=== PATIENT | male | born 1955 | race African-American/Black ===

== ENCOUNTER 2016-09-03 10:09 | Inpatient (IN) | payer OTHER ==
[2016-09-03] VITALS (8 sets, daily range): BP systolic 125–144; BP diastolic 87–95; PULSE 64–96; RESP 18–20; Ht 170.2 cm; Wt 94.9 kg
[~2016-09-03] VITALS: Ht 170.2 cm; Wt 94.9 kg
[2016-09-03] MEDS ORDERED: ALBUTEROL/IPRATROPIUM (NEB) 3 ML AMP HHN PRN ×2 (12:00→14:00)
[2016-09-03] MEDS: NITROGLYCERIN 2% 1 GM OINT PKT TD SCH ×2 (12:00→21:00)
[2016-09-03] MEDS ORDERED: NA PHOSPHATE/BIPHOS 133 ML ENEMA PR PRN (14:00)
[2016-09-03] MEDS ORDERED: LORAZEPAM 2 MG INJ IV PRN (14:00)
[2016-09-03] MEDS ORDERED: MAGNESIUM HYDROXIDE 30ML CUP PO PRN (14:00)
[2016-09-03] MEDS ORDERED: DOCUSATE SODIUM 100 MG CAP PO PRN (14:00)
[2016-09-03] MEDS ORDERED: ACETAMINOPHEN 325 MG TAB PO PRN (14:00)
[2016-09-03] MEDS ORDERED: ONDANSETRON 4 MG INJ IV PRN (14:00)
[2016-09-03] MEDS ORDERED: HYDROCODONE/APAP (5/325) TAB PO PRN (14:00)
[2016-09-03] MEDS ORDERED: NITROGLYCERIN (SL) 0.4 MG TAB SL PRN (14:00)
[2016-09-03] MEDS ORDERED: NACL 0.9% 3 ML SYG IV SCH (14:00)
[2016-09-03] MEDS ORDERED: hydrALAzine 20 MG INJ IV PRN (14:00)
[2016-09-03] MEDS ORDERED: morphine 2 MG INJ IV PRN (14:00)
[2016-09-03 15:46] LABS: INR 1.02; PROTIME 13.4 Sec (12.2-14.2)
--- NOTE | 2016-09-03 16:58 | HP ---
DATE OF ADMISSION: 09/03/2016 CHIEF COMPLAINT: A 61-year-old male transferred from outside hospital due to abnormal left heart catheterization. HISTORY OF PRESENT ILLNESS: A 61-year-old male with past medical history of marijuana use and COPD who was transferred over from [facility] in [place] earlier today. Apparently, the patient had presented there about 5 days ago after experiencing chest pain symptoms that have been going on for 1 to 2 days prior to admission there. What concerned him was that he had more dizziness than normal and some increased left arm numbness and his became concerned and convinced him to go to [facility] on 08/30/2016 based on records. The patient states he has had these kind of symptoms off and on for the last couple years, happening about 2 to 3 times a month, but the dizziness and numbness have never been this severe so that is what concerned him and his family. No upper or lower GI bleeding, no fevers or chills, no nausea, vomiting, no diarrhea, no constipation. When he went to the outside hospital on 09/01/2016, he had a left heart catheterization that showed 85% to 90% proximal LAD blockage possibly ostial blockage. Apparently the patient has no left main artery anatomy. The single needle tufting machine operator there was concerned and wanted the patient transferred here as the hospital over there does not have cardiothoracic surgery services and so he wanted to see about having him transferred here in case the patient needs a bypass surgery and at a minimum needs a repeat heart catheterization. PAST MEDICAL HISTORY: As stated above. ALLERGIES: NO KNOWN DRUG ALLERGIES. CURRENT MEDICATIONS: 1. Aspirin 81 mg. 2. Norvasc 5 mg. 3. Tylenol 650 q.6h. p.r.n. 4. DuoNeb inhaled q.4h. p.r.n. 5. Nitroglycerin sublingual every 5 minutes p.r.n. FAMILY HISTORY: Mother's side of the family has depression, schizophrenia. No signs of any coronary artery disease. SOCIAL HISTORY: He smokes weed occasionally. Denies any IV drug abuse. No cigarette smoking, no alcohol use. PAST SURGICAL HISTORY: He has had Achilles heel surgery repair in the past and hernia surgery repair in the past. PHYSICAL EXAMINATION: VITAL SIGNS: T-max 97.8, pulse 64 to 93, respirations 20, blood pressure is 144 /87, saturating at 97% on room air. GENERAL: The patient is lying in bed, answering questions appropriately. No acute distress. HEENT: Pupils equal, round, react to light. Extraocular muscles intact. NECK: Supple, no thyromegaly. LUNGS: Clear to auscultation bilaterally. CARDIOVASCULAR: S1, S2 heard. No rubs or gallops. ABDOMEN: Soft, nontender, nondistended. Normal bowel sounds. No rebound or guarding. MUSCULOSKELETAL: No lower extremity edema bilaterally. NEUROLOGIC: No focal deficits. LABORATORIES: The free T4 is 1.53. Coags are normal. There is no new CBC or basic metabolic panel from today. The left heart catheterization results as mentioned above in the HPI. Of note, it looks like the patient had a cardiac stress test performed, Lexiscan, there were findings of a small partial reversible perfusion abnormality in the basal inferior basal inferolateral blancas, mild hypokinesis of the left ventricle, left ventricular ejection fraction at stress is 46% and again the left heart catheterization results suspected high degree ostial 90% LAD stenosis at a separate ostium of the LAD out of the aorta. ASSESSMENT AND PLAN: This is a 61-year-old male coming in with chest pain and left arm numbness for 2 days prior to admission, transferred from outside hospital with findings of 90% LAD stenosis on heart catheterization. 1. Chest pain. It looks like he did rule out for acute coronary syndrome; however, his left heart cath is abnormal as mentioned above, will get a cardiology consult. I spoke with Dr. Carmen the development disability specialist who performed the left heart cath at the outside hospital. 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 Apparently, he does not have a normal left main artery per Dr. Carmen. In any event, continue current cardiac medicines as well including his Norvasc and aspirin. Check TSH, A1c, and lipid panel. 2. History of chronic obstructive pulmonary disease, no present issues. He is on DuoNeb p.r.n. 3. Gastrointestinal (GI) prophylaxis, we will put him on H2 frances. 4. Deep venous thrombosis prophylaxis, heparin subcutaneously. Dictated By: KADEN DORMAN Conf#: [id number] DID#: [id number] MTDD
[2016-09-03] MEDS: LOSARTAN 25 MG TAB PO SCH (18:52)
[2016-09-03] MEDS: ISOSORBIDE MONONITRATE(SR)30 MG TAB PO SCH (18:52)
[2016-09-03] MEDS: FAMOTIDINE 20 MG TAB PO SCH (21:00)
[2016-09-03] MEDS: HEPARIN 5,000 UNIT/0.5 ML SYG SC SCH (21:14)
[2016-09-04] VITALS (13 sets, daily range): BP systolic 121–156; BP diastolic 60–86; PULSE 77–97; RESP 18–20
--- NOTE | 2016-09-04 04:56 | CONS ---
DATE OF ADMISSION: 09/03/2016 DATE OF CONSULTATION: 09/03/2016 HISTORY OF PRESENT ILLNESS: Patient is a 61-year-old gentleman who was transferred from [facility] after cardiac catheterization. According to the patient, he had possible left main ___ __. He was transferred here as a high-risk surgical patient. He denies any chest pain, shortness of breath, dizziness, syncope, or palpitations. PAST MEDICAL HISTORY: COPD. ALLERGIES: NONE. CURRENT MEDICATIONS: Include 1. Amlodipine. 2. Aspirin. 3. Famotidine. 4. Heparin. REVIEW OF SYSTEMS: Unremarkable except that mentioned in the HPI. PHYSICAL EXAMINATION: VITAL SIGNS: Temperature is 99.3, heart rate of 93, blood pressure 141/95 mmHg, breathing at 20, an d saturating 96%. GENERAL: Awake, alert, oriented, no apparent distress. NECK: No JVD or carotid bruit. CARDIOVASCULAR: Regular rate and rhythm. No murmur, rub, or gallop. LUNGS: Clear to auscultation. ABDOMEN: Soft. Bowel sounds are present. There is no organomegaly. EXTREMITIES: No pedal edema. Pedal pulses are felt bilaterally. DIAGNOSTIC STUDIES: EKG pending. LABORATORY DATA: Pending. ASSESSMENT AND PLAN: Typical angina status post cardiac catheterization. I have asked the patient to get cardiac cath films to be reviewed at [facility]. If intervention needs to be done, Dr. Jackson will perform the intervention. Meanwhile, start the patient on Imdur, aspirin, Coreg, a nd losartan. Dictated By: MARK BASS MD SR/NTS Conf#: [id number] DID#: [id number]
[2016-09-04 07:04] LABS: BASOPHILS % 0.4 % (0.0-2.0); EOSINOPHILS # 0.1 10^3/ul (0.0-0.5); EOSINOPHILS % 0.8 % (0.0-7.0); HEMATOCRIT 44.6 % (42.0-52.0); HEMOGLOBIN 15.2 g/dl (14.0-18.0); LYMPHOCYTES # 2.3 10^3/ul (0.8-2.9); LYMPHOCYTES % 23.8 % (15.0-51.0); MEAN CORPUSCULAR HEMOGLOBIN 30.8 pg (29.0-33.0); MEAN CORPUSCULAR HGB CONC 34.1 g/dl (32.0-37.0); MEAN CORPUSCULAR VOLUME 90.5 fl (82.0-101.0); MEAN PLATELET VOLUME 8.4 fl (7.4-10.4); MONOCYTES % 9.8 % (0.0-11.0); NEUTROPHIL # 6.4 10^3/ul (1.6-7.5); NEUTROPHILS % 65.2 % (39.0-77.0); PLATELET COUNT 257 10^3/UL (140-440); RED BLOOD COUNT 4.93 10^6/ul (4.70-6.10); RED CELL DISTRIBUTION WIDTH 13.1 % (11.5-14.5); UNCORRECTED WBC 9.9 10^3/ul (4.8-10.8); WHITE BLOOD COUNT 9.9 10^3/ul (4.8-10.8)
[2016-09-04 07:07] LABS: POTASSIUM 4.1 mmol/L (3.5-5.1)
[2016-09-04 07:08] LABS: CONDITION 1
[2016-09-04 07:09] LABS: CREATININE 1.01 mg/dl (0.61-1.24)
[2016-09-04 07:10] LABS: CALCIUM 9.6 mg/dl (8.4-10.2); PHOSPHORUS 3.1 mg/dl (2.5-4.9)
[2016-09-04 07:11] LABS: CHOL/HDL RATIO 12.6 RATIO
[2016-09-04 07:40] LABS: THYROID STIMULATING HORMONE 0.881 MIU/L (0.465-4.680)
[2016-09-04] MEDS: NITROGLYCERIN 2% 1 GM OINT PKT TD SCH ×2 (09:00→21:00)
[2016-09-04] MEDS: ISOSORBIDE MONONITRATE(SR)30 MG TAB PO SCH (09:00)
[2016-09-04] MEDS: ASPIRIN (EC) 81 MG TAB PO SCH (09:00)
[2016-09-04] MEDS: AMLODIPINE 5 MG TAB PO SCH (09:00)
[2016-09-04] MEDS: LOSARTAN 25 MG TAB PO SCH (09:00)
--- NOTE | 2016-09-04 09:08 | PN ---
Date/Time of Note Date/Time of Note DATE: 09/04/16 TIME: 09:04 Assessment/Plan VTE Prophylaxis VTE Prophylaxis Intervention: heparin Lines/Catheters IV [facility]ter Type (from [facility] Saline Lock Urinary Cath still in place: No Assessment/Plan Chief Complaint/Hosp Course ASSESSMENT AND PLAN: 61-year-old male coming in with chest pain and left arm numbness for 2 days prior to admission, transferred from outside hospital with findings of 90% LAD stenosis on heart catheterization. 1. Chest pain.- has r/o'ed for acute coronary syndrome at outside hospital; however, his left heart cath is abnormal as mentioned above, - f/u cardiology consult rec's - will likely need repeat heart catheterization and also contact cardiothoracic surgery team to see if the patient indeed needs to have stenting placed versus bypass surgery given his 90 % LAD blockage and his abnormal anatomy. (Of note I spoke with Dr. Carmen the char belt operator who performed the left heart cath at the outside hospital. 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 - f/u TSH, A1c, and lipid panel. 2. History of chronic obstructive pulmonary disease, no present issues. He is on DuoNeb p.r.n. 3. Gastrointestinal (GI) prophylaxis, we will put him on H2 frances. 4. Deep venous thrombosis prophylaxis, heparin subcutaneously. Problems: Subjective 24 Hr Interval Summary Free Text/Dictation Denies cp, seen by CV team yesterday. Exam/Review of Systems Vital Signs Vitals Vital Signs Date Time Temp Pulse Resp B/P Pulse Ox O2 Delivery O2 Flow Rate FiO2 09/04/16 08:41 96 09/04/16 07:35 98.1 20 121/78 93 09/03/16 16:04 21 09/03/16 10:30 Room Air Intake and Output 09/03/16 09/03/16 09/04/16 15:00 23:00 07:00 Intake Total 360 ml 450 ml Balance 360 ml 450 ml Exam GENERAL: The patient is lying in bed, answering questions appropriately. No acute distress. HEENT: Pupils equal, round, react to light. Extraocular muscles intact. NECK: Supple, no thyromegaly. LUNGS: Clear to auscultation bilaterally. CARDIOVASCULAR: S1, S2 heard. No rubs or gallops. ABDOMEN: Soft, nontender, nondistended. Normal bowel sounds. No rebound or guarding. MUSCULOSKELETAL: No lower extremity edema bilaterally. NEUROLOGIC: No focal deficits. Results Result Diagram: 09/04/16 0540 09/04/16 0540 Results 24 hrs Laboratory Tests Test 09/03/16 14:30 09/03/16 15:18 09/04/16 05:40 Free Thyroxine 1.53 Activated Partial Thromboplast Time 30.0 INR International Normalized Ratio 1.02 Prothrombin Time 13.4 Prothrombin Time Ratio 1.0 Anion Gap 14 Basophils # 0.0 Basophils % 0.4 Blood Urea Nitrogen 14 Calcium Level 9.6 Carbon Dioxide Level 32 H Chloride Level 102 Cholesterol Level 241 H Cholesterol/HDL Ratio 12.6 Creatinine 1.01 Eosinophils # 0.1 Eosinophils % 0.8 Glucose Level 108 HDL Cholesterol 19 L Hematocrit 44.6 Hemoglobin 15.2 LDL Cholesterol, Calculated 182 Lymphocytes # 2.3 Lymphocytes % 23.8 Magnesium Level 2.0 Mean Corpuscular Hemoglobin 30.8 Mean Corpuscular Hemoglobin Concent 34.1 Mean Corpuscular Volume 90.5 Mean Platelet Volume 8.4 Monocytes # 1.0 H Monocytes % 9.8 Neutrophils # 6.4 Neutrophils % 65.2 Nucleated Red Blood Cells # 0.0 Nucleated Red Blood Cells % 0.0 Phosphorus Level 3.1 Platelet Count 257 Potassium Level 4.1 Red Blood Count 4.93 Red Cell Distribution Width 13.1 Sodium Level 144 Thyroid Stimulating Hormone (TSH) 0.881 Triglycerides Level 202 H White Blood Count 9.9 Medications Medications Current Medications Amlodipine Besylate (Norvasc) 5 mg DAILY PO ; Start 09/04/16 at 09:00 Aspirin (Halfprin) 81 mg DAILY PO ; Start 09/04/16 at 09:00 Nitroglycerin (Nitroglycerin 2% Oint) 1 inch Q12 TD ; Start 09/03/16 at 12:00 Ondansetron HCl (Zofran Inj) 4 mg Q6H PRN IV NAUSEA AND/OR VOMITING; Start 09/03 at 14:00 Acetaminophen (Tylenol Tab) 650 mg Q6H PRN PO PAIN LEVEL 1-3 OR FEVER; Start at 14:00 Acetaminophen/ Hydrocodone Bitart ([place] (5/325)) 1 tab Q6H PRN PO MODERATE PAIN LEVEL 4-6; Start 09/03/16 at 14:00 Morphine Sulfate (morphine) 2 mg Q4H PRN IV SEVERE PAIN LEVEL 7-10; Start at 14:00 Docusate Sodium (Colace) 100 mg Q12H PRN PO CONSTIPATION; Start 09/03/16 at 14: 00 Magnesium Hydroxide (Milk Of Mag) 30 ml DAILY PRN PO CONSTIPATION; Start at 14:00 Sodium Biphosphate/ Sodium Phosphate (Fleet Enema) 133 ml DAILY PRN [place] CONSTIPATION; Start 09/03/16 at 14:00 Famotidine (Pepcid) 20 mg Q12 PO ; Start 09/03/16 at 21:00 Heparin Sodium (Porcine) (Heparin (5000 Units/0.5 ml)) 5,000 unit Q12 SC Last administered on 09/03/16 21:14; Admin Dose 5,000 UNIT; Start 09/03/16 at 21:00 Lorazepam (Ativan) 0.5 mg Q6H PRN IV ANXIETY; Start 09/03/16 at 14:00 Hydralazine HCl (Apresoline) 10 mg Q6H PRN IV SBP GREATER THAN 180; Start at 14:00 Nitroglycerin (Nitroglycerin (Sl Tab) 0.4 Mg) 1 tab Q5M PRN SL ANGINA; Start at 14:00 Isosorbide Mononitrate (Imdur) 30 mg DAILY PO Last administered on 09/03/16 18: 52; Admin Dose 30 MG; Start 09/03/16 at 18:30 Carvedilol (Coreg) 3.125 mg BID PO ; Start 09/03/16 at 21:00 Losartan Potassium (Cozaar) 25 mg DAILY PO Last administered on 09/03/16 18:52 ; Admin Dose 25 MG; Start 09/03/16 at 18:30 Atorvastatin Calcium (Lipitor) 40 mg DAILY PO ; Start 09/04/16 at 09:30; Status KADEN VERA Sep 04, 2016 09:08
[2016-09-04] MEDS: FAMOTIDINE 20 MG TAB PO SCH ×2 (09:12→21:06)
[2016-09-04] MEDS: HEPARIN 5,000 UNIT/0.5 ML SYG SC SCH ×2 (09:13→21:11)
[2016-09-04] MEDS: ATORVASTATIN 40 MG TAB PO SCH (10:50)
--- NOTE | 2016-09-04 14:16 | CONS ---
DATE OF ADMISSION: 09/03/2016 DATE OF CONSULTATION: REASON FOR CONSULTATION: Evaluation for possible coronary artery bypass grafting. HISTORY OF PRESENT ILLNESS: This is a 61-year-old male transferred from [facility] after car diac catheterization. At that time, the patient was considered to be high risk for possible angiopl asty. The patient is now being evaluated for possible angioplasty versus CABG. She denies any shor tness of breath, chest pain, dizziness, syncope or palpitations. PAST MEDICAL HISTORY: Significant for no diabetes but positive for COPD. SOCIAL HISTORY: No smoking, drinking or drug use. MEDICATIONS: 1. Amlodipine. 2. Aspirin. 3. 4. Heparin. ALLERGIES: NO KNOWN DRUG ALLERGIES. PHYSICAL EXAMINATION: GENERAL: The patient is awake, alert, responds appropriately. VITAL SIGNS: Blood pressure is 121/78, pulse is 88, respirations 20, saturations 92% on room air, t emperature is 98.3. HEENT: Normocephalic, atraumatic. PERRLA. NECK: Supple. No JVD, no carotid bruits. CARDIOVASCULAR: Regular rate and rhythm, normal S1, S2. No murmurs, gallops or rubs. LUNGS: Clear to auscultation and palpation. ABDOMEN: Soft, nontender, nondistended. EXTREMITIES: Warm. No clubbing, cyanosis, or edema. LABORATORY VALUES: White count 9.9, hemoglobin 15.2, platelet count 257. Normal coagulation factor s and a creatinine of 1.01. IMPRESSION: Coronary artery disease. RECOMMENDATIONS: The patient to have his cardiac catheterization evaluated by Dr. Jackson for possi ble angioplasty. If angioplasty and PCI is not possible, then he would be evaluated for possible CA BG. Discussed with the patient and the family. All questions answered. Dictated By: VINH SINGH/MARCELINA Conf#: [id number] DID#: [id number]
--- NOTE | 2016-09-04 18:38 | CONS ---
Date/Time of Note Date/Time of Note DATE: 09/04/16 TIME: 18:34 Assessment/Plan Assessment/Plan Additional Assessment/Plan ASSESSMENT AND PLAN: Typical angina status post cardiac catheterization. I have asked the patient to get cardiac cath films to be reviewed at [facility]. If intervention needs to be done, Dr. Jackson will perform the intervention. Patient has cardiac cath films to be reviewed by Dr Jackson Continue Imdur, aspirin, Coreg, and losartan. Consultation Date/Type/Reason Admit Date/Time Sep 03, 2016 at 10:09 Initial Consult Date Exam/Review of Systems Vital Signs Vitals Vital Signs Date Time Temp Pulse Resp B/P Pulse Ox O2 Delivery O2 Flow Rate FiO2 09/04/16 16:57 79 09/04/16 15:43 98.2 18 131/86 98 09/03/16 16:04 21 09/03/16 10:30 Room Air Intake and Output 09/03/16 09/03/16 09/04/16 15:00 23:00 07:00 Intake Total 360 ml 450 ml Balance 360 ml 450 ml Exam Constitutional: alert, oriented, well developed Neck: non-tender, supple Respiratory: clear to auscultation Cardiovascular: regular rate and rhythm Gastrointestinal: nl liver, spleen, soft Extremities: normal pulses Results Result Diagram: 09/04/16 0540 09/04/16 0540 Results 24 hrs Laboratory Tests Test 09/04/16 05:40 09/04/16 10:30 09/04/16 17:00 Anion Gap 14 Basophils # 0.0 Basophils % 0.4 Blood Urea Nitrogen 14 Calcium Level 9.6 Carbon Dioxide Level 32 H Chloride Level 102 Cholesterol Level 241 H Cholesterol/HDL Ratio 12.6 Creatinine 1.01 Eosinophils # 0.1 Eosinophils % 0.8 Glucose Level 108 HDL Cholesterol 19 L Hematocrit 44.6 Hemoglobin 15.2 Hemoglobin A1c 5.9 LDL Cholesterol, Calculated 182 Lymphocytes # 2.3 Lymphocytes % 23.8 Magnesium Level 2.0 Mean Corpuscular Hemoglobin 30.8 Mean Corpuscular Hemoglobin Concent 34.1 Mean Corpuscular Volume 90.5 Mean Platelet Volume 8.4 Monocytes # 1.0 H Monocytes % 9.8 Neutrophils # 6.4 Neutrophils % 65.2 Nucleated Red Blood Cells # 0.0 Nucleated Red Blood Cells % 0.0 Phosphorus Level 3.1 Platelet Count 257 Potassium Level 4.1 Red Blood Count 4.93 Red Cell Distribution Width 13.1 Sodium Level 144 Thyroid Stimulating Hormone (TSH) 0.881 Triglycerides Level 202 H White Blood Count 9.9 Troponin I 0.020 0.018 Medications Medications Current Medications Amlodipine Besylate (Norvasc) 5 mg DAILY PO ; Start 09/04/16 at 09:00 Aspirin (Halfprin) 81 mg DAILY PO Last administered on 09/04/16 09:00; Admin Dose 81 MG; Start 09/04/16 at 09:00 Nitroglycerin (Nitroglycerin 2% Oint) 1 inch Q12 TD ; Start 09/03/16 at 12:00 Ondansetron HCl (Zofran Inj) 4 mg Q6H PRN IV NAUSEA AND/OR VOMITING; Start 09/03 at 14:00 Acetaminophen (Tylenol Tab) 650 mg Q6H PRN PO PAIN LEVEL 1-3 OR FEVER; Start at 14:00 Acetaminophen/ Hydrocodone Bitart ([place] (5/325)) 1 tab Q6H PRN PO MODERATE PAIN LEVEL 4-6; Start 09/03/16 at 14:00 Morphine Sulfate (morphine) 2 mg Q4H PRN IV SEVERE PAIN LEVEL 7-10; Start at 14:00 Docusate Sodium (Colace) 100 mg Q12H PRN PO CONSTIPATION; Start 09/03/16 at 14: 00 Magnesium Hydroxide (Milk Of Mag) 30 ml DAILY PRN PO CONSTIPATION; Start at 14:00 Sodium Biphosphate/ Sodium Phosphate (Fleet Enema) 133 ml DAILY PRN [place] CONSTIPATION; Start 09/03/16 at 14:00 Famotidine (Pepcid) 20 mg Q12 PO Last administered on 09/04/16 09:12; Admin Dose 20 MG; Start 09/03/16 at 21:00 Heparin Sodium (Porcine) (Heparin (5000 Units/0.5 ml)) 5,000 unit Q12 SC Last administered on 09/04/16 09:13; Admin Dose 5,000 UNIT; Start 09/03/16 at 21:00 Lorazepam (Ativan) 0.5 mg Q6H PRN IV ANXIETY; Start 09/03/16 at 14:00 Hydralazine HCl (Apresoline) 10 mg Q6H PRN IV SBP GREATER THAN 180; Start at 14:00 Nitroglycerin (Nitroglycerin (Sl Tab) 0.4 Mg) 1 tab Q5M PRN SL ANGINA; Start at 14:00 Isosorbide Mononitrate (Imdur) 30 mg DAILY PO Last administered on 09/03/16 18: 52; Admin Dose 30 MG; Start 09/03/16 at 18:30 Carvedilol (Coreg) 3.125 mg BID PO ; Start 09/03/16 at 21:00 Losartan Potassium (Cozaar) 25 mg DAILY PO Last administered on 09/03/16 18:52 ; Admin Dose 25 MG; Start 09/03/16 at 18:30 Atorvastatin Calcium (Lipitor) 40 mg DAILY PO Last administered on 09/04/16 10: 50; Admin Dose 40 MG; Start 09/04/16 at 09:30 MARK BASS M.D. Sep 04, 2016 18:38
[2016-09-05] VITALS (13 sets, daily range): BP systolic 117–159; BP diastolic 70–95; PULSE 60–97; RESP 17–20
[2016-09-05 06:56] LABS: BASOPHILS % 0.3 % (0.0-2.0); EOSINOPHILS # 0.1 10^3/ul (0.0-0.5); EOSINOPHILS % 1.2 % (0.0-7.0); HEMATOCRIT 43.9 % (42.0-52.0); HEMOGLOBIN 14.9 g/dl (14.0-18.0); LYMPHOCYTES # 2.4 10^3/ul (0.8-2.9); LYMPHOCYTES % 23.3 % (15.0-51.0); MEAN CORPUSCULAR HEMOGLOBIN 30.5 pg (29.0-33.0); MEAN CORPUSCULAR VOLUME 89.8 fl (82.0-101.0); MONOCYTE # 0.9 10^3/ul (0.3-0.9); MONOCYTES % 8.7 % (0.0-11.0); NEUTROPHILS % 66.5 % (39.0-77.0); PLATELET COUNT 272 10^3/UL (140-440); RED BLOOD COUNT 4.89 10^6/ul (4.70-6.10); UNCORRECTED WBC 10.5 10^3/ul (4.8-10.8); WHITE BLOOD COUNT 10.5 10^3/ul (4.8-10.8)
[2016-09-05 06:59] LABS: CONDITION 1
[2016-09-05 07:11] LABS: POTASSIUM 3.7 mmol/L (3.5-5.1)
[2016-09-05 07:13] LABS: CREATININE 1.05 mg/dl (0.61-1.24)
[2016-09-05 07:15] LABS: CALCIUM 9.5 mg/dl (8.4-10.2)
[2016-09-05] MEDS: ASPIRIN (EC) 81 MG TAB PO SCH (08:40)
[2016-09-05] MEDS: ATORVASTATIN 40 MG TAB PO SCH (08:40)
[2016-09-05] MEDS: FAMOTIDINE 20 MG TAB PO SCH ×2 (08:41→20:14)
[2016-09-05] MEDS: LOSARTAN 25 MG TAB PO SCH (08:41)
[2016-09-05] MEDS: HEPARIN 5,000 UNIT/0.5 ML SYG SC SCH ×2 (08:42→20:21)
[2016-09-05] MEDS: AMLODIPINE 5 MG TAB PO SCH (08:46)
[2016-09-05] MEDS: NITROGLYCERIN 2% 1 GM OINT PKT TD SCH ×2 (08:46→20:14)
[2016-09-05] MEDS: ISOSORBIDE MONONITRATE(SR)30 MG TAB PO SCH (08:46)
--- NOTE | 2016-09-05 10:34 | PN ---
Date/Time of Note Date/Time of Note DATE: 09/05/16 TIME: 10:30 Assessment/Plan VTE Prophylaxis VTE Prophylaxis Intervention: heparin Lines/Catheters IV Catheter Type (from [facility]): Saline Lock Urinary Cath still in place: No Assessment/Plan Assessment/Plan 61-year-old male coming in with chest pain and left arm numbness for 2 days prior to admission, transferred from outside hospital with findings of 90% LAD stenosis on heart catheterization. 1. Chest pain.- has r/o'ed for acute coronary syndrome at outside hospital; however, his left heart cath is abnormal as mentioned above, - f/u cardiology consult rec's - will likely need repeat heart catheterization and also contact cardiothoracic surgery team to see if the patient indeed needs to have stenting placed versus bypass surgery given his 90 % LAD blockage and his abnormal anatomy. (Of note I spoke with Dr. Carmen the furnace builder who performed the left heart cath at the outside hospital. 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 - Lipid - elevated LDL - will start atorvastatin 80 mg po qhs 2. Chronic obstructive pulmonary disease, no present issues. He is on DuoNeb p.r.n. 3. Gastrointestinal (GI) prophylaxis, we will put him on H2 frances. 4. Deep venous thrombosis prophylaxis, heparin subcutaneously. dispo - f/u recs, possible repeat angiogram vs surgical intervention. as per clinical course. this progress note took greater than 40 minutes to complete Subjective 24 Hr Interval Summary Free Text/Dictation Patient had no overnight events. No chest pain, or dizziness. Spoke to him at length about the care plan, including repeat angiogram vs surgical intervention. He states that he has no Left Main artery, but will see on angiogram - defer to cardiology. 20 minutes spent. Exam/Review of Systems Vital Signs Vitals Vital Signs Date Time Temp Pulse Resp B/P Pulse Ox O2 Delivery O2 Flow Rate FiO2 09/05/16 08:55 71 09/05/16 07:45 98.3 20 159/75 98 09/03/16 16:04 21 09/03/16 10:30 Room Air Intake and Output 09/04/16 09/04/16 09/05/16 15:00 23:00 07:00 Intake Total 860 ml 500 ml Balance 860 ml 500 ml Exam Gen Rajesh: NAD, AAOx4 HEENT: NC/AT, PERRLA, EOMI, no pharyngeal erythema, no tonsillar exudates, no lymphadenopathy, no JVD, no carotid bruits NECK: supple, no thyromegaly THORAX: symmetrical, no obvious deformities CV: S1S2, RRR, no M/G/R Lungs: CTAB no W/C/R/R Abd: soft, NT/ND, +BS, no rebound, no guarding, neg HSM EXT: no edema, no ecchymosis, no clubbing, FROM Neuro: CN II-XII grossly intact, no focal deficits Psych: good mentation, alert and oriented, good mood and affect Skin: C/D/I Results Result Diagram: 09/05/1635 09/05/1635 Results 24 hrs Laboratory Tests Test 09/04/16 17:00 09/05/16 00:43 09/05/16 06:35 Troponin I 0.018 0.018 Anion Gap 14 Basophils # 0.0 Basophils % 0.3 Blood Urea Nitrogen 14 Calcium Level 9.5 Carbon Dioxide Level 31 Chloride Level 104 Creatinine 1.05 Eosinophils # 0.1 Eosinophils % 1.2 Glucose Level 109 Hematocrit 43.9 Hemoglobin 14.9 Lymphocytes # 2.4 Lymphocytes % 23.3 Mean Corpuscular Hemoglobin 30.5 Mean Corpuscular Hemoglobin Concent 34.0 Mean Corpuscular Volume 89.8 Mean Platelet Volume 8.0 Monocytes # 0.9 Monocytes % 8.7 Neutrophils # 7.0 Neutrophils % 66.5 Nucleated Red Blood Cells # 0.0 Nucleated Red Blood Cells % 0.0 Platelet Count 272 Potassium Level 3.7 Red Blood Count 4.89 Red Cell Distribution Width 13.0 Sodium Level 145 H White Blood Count 10.5 Medications Medications Current Medications Amlodipine Besylate (Norvasc) 5 mg DAILY PO ; Start 09/04/16 at 09:00 Aspirin (Halfprin) 81 mg DAILY PO Last administered on 09/05/16t 08:40; Admin Dose 81 MG; Start 09/04/16 at 09:00 Nitroglycerin (Nitroglycerin 2% Oint) 1 inch Q12 TD ; Start 09/03/16 at 12:00 Ondansetron HCl (Zofran Inj) 4 mg Q6H PRN IV NAUSEA AND/OR VOMITING; Start 09/03 at 14:00 Acetaminophen (Tylenol Tab) 650 mg Q6H PRN PO PAIN LEVEL 1-3 OR FEVER; Start at 14:00 Acetaminophen/ Hydrocodone Bitart ([place] (5/325)) 1 tab Q6H PRN PO MODERATE PAIN LEVEL 4-6; Start 09/03/16 at 14:00 Morphine Sulfate (morphine) 2 mg Q4H PRN IV SEVERE PAIN LEVEL 7-10; Start at 14:00 Docusate Sodium (Colace) 100 mg Q12H PRN PO CONSTIPATION; Start 09/03/16 at 14: 00 Magnesium Hydroxide (Milk Of Mag) 30 ml DAILY PRN PO CONSTIPATION; Start at 14:00 Sodium Biphosphate/ Sodium Phosphate (Fleet Enema) 133 ml DAILY PRN [place] CONSTIPATION; Start 09/03/16 at 14:00 Famotidine (Pepcid) 20 mg Q12 PO Last administered on 09/05/16 08:41; Admin Dose 20 MG; Start 09/03/16 at 21:00 Heparin Sodium (Porcine) (Heparin (5000 Units/0.5 ml)) 5,000 unit Q12 SC Last administered on 09/05/16 08:42; Admin Dose 5,000 UNIT; Start 09/03/16 at 21:00 Lorazepam (Ativan) 0.5 mg Q6H PRN IV ANXIETY; Start 09/03/16 at 14:00 Hydralazine HCl (Apresoline) 10 mg Q6H PRN IV SBP GREATER THAN 180; Start at 14:00 Nitroglycerin (Nitroglycerin (Sl Tab) 0.4 Mg) 1 tab Q5M PRN SL ANGINA; Start at 14:00 Isosorbide Mononitrate (Imdur) 30 mg DAILY PO Last administered on 09/03/16 18: 52; Admin Dose 30 MG; Start 09/03/16 at 18:30 Carvedilol (Coreg) 3.125 mg BID PO ; Start 09/03/16 at 21:00 Losartan Potassium (Cozaar) 25 mg DAILY PO Last administered on 09/05/16 08:41 ; Admin Dose 25 MG; Start 09/03/16 at 18:30 Atorvastatin Calcium (Lipitor) 40 mg DAILY PO Last administered on 09/05/16t 08: 40; Admin Dose 40 MG; Start 09/04/16 at 09:30 LAKESHA FARNSWORTH MD Sep 05, 2016 10:34
--- NOTE | 2016-09-05 11:08 | RADRPT ---
Echocardiogram Report Patient Name: JENNA CASTILLO Gender: Male Date: 1955 Study Date: 05-Sep-2016 Senior [employer] Adf Developer: Giovani Ritter [facility] Location: [address] Ref. Physician: CHU BASS Quality: Technically Difficult Study Procedures: Transthoracic echocardiogram with complete 2D, M-Mode, and doppler examination. Indications: Chest Pain. 2D/M Mode Doppler Measurement Value Normal Ranges Measurement Value Normal Ranges LVIDd 2D 5.1 3.5 - 5.6 cm AV Peak Enrique 1.2 m/sec LVIDs 2D 3.3 2.1 - 4.1 cm AV Peak PG 5.7 mmHg LVPWd 2D 1.1 0.6 - 1.1 cm LVOT Peak Enrique 0.6 m/sec IVSd 2D 1.1 0.6 - 1.1 cm LVOT Peak PG 1.3 mmHg AoR Diam 2D 3.3 2.0 - 3.7 cm MV E Peak Enrique 0.6 m/sec EDV 2D 121.3 cm3 MV A Peak Enrique 0.8 m/sec ESV 2D 35.7 cm3 MV E/A 0.8 LA Dimen 2D 2.9 2.3 - 4.0 cm MV Decel Time 148 msec MV Decel [place] 4 MV E/A 0.8 Findings Left Ventricle: Normal left ventricular cavity size. Normal left ventricular wall thickness. Mild left ventricular systolic dysfunction. Ejection fraction is visually estimated at 45 %. Multiple segmental wall motion abnormalities. Right Ventricle: Normal right ventricular size. Left Atrium: The left atrium is normal in size. Right Atrium: The right atrium is normal in size. Mitral Valve: Mitral valve leaflets appear mildly thickened. Trace mitral regurgitation. Aortic Valve: Normal appearance of the aortic valve. No significant aortic stenosis or insufficiency. Tricuspid Valve: Normal appearance and function of the tricuspid valve with trace physiologic regurgitation. Pericardium: Normal pericardium with no significant pericardial effusion. Aorta: Normal aortic root. IVC: Normal size and normal respiratory collapse consistent with normal right atrial pressure. Conclusions Normal left ventricular cavity size. Normal left ventricular wall thickness. Mild left ventricular systolic dysfunction. Ejection fraction is visually estimated at 45 %. Multiple segmental wall motion abnormalities. Frequebt PVCs complicates accurate measurement of ejection fraction. Mitral valve leaflets appear mildly thickened. Trace mitral regurgitation. Normal appearance of the aortic valve. No significant aortic stenosis or insufficiency. Normal appearance and function of the tricuspid valve with trace physiologic regurgitation. Normal pericardium with no significant pericardial effusion. Electronically Signed By: Chu Bass 05-Sep-2016 11:07:23 -0800 Patient Name: JENNA CASTILLO Study Date: 05-Sep-[id number]
--- NOTE | 2016-09-05 13:19 | CONS ---
Date/Time of Note Date/Time of Note DATE: 09/05/16 TIME: 13:15 Assessment/Plan Assessment/Plan Chief Complaint/Hosp Course IMp: 1.cad-obstructive by osh cath at [facility] 2.Chest pain 3.HTn 4.HL 5.cardiomyopathy-LVEF 45% Recc: -tele -serial ecg's -Continue asa/statin -Continue coreg/norvasc/imdur/losartan -Will review films just obtained today from prior cath and give reccomendations thereafter as to potential stent placement for treatment of disease versus cabg Problems: Consultation Date/Type/Reason Admit Date/Time Sep 03, 2016 at 10:09 Initial Consult Date 09/04/2016 Type of Consultation: Cardiology Reason for Consultation cad Referring Provider: LAKESHA FARNSWORTH MD Exam/Review of Systems Vital Signs Vitals Vital Signs Date Time Temp Pulse Resp B/P Pulse Ox O2 Delivery O2 Flow Rate FiO2 09/05/16 12:15 98.4 82 20 118/70 96 09/03/16 16:04 21 09/03/16 10:30 Room Air Intake and Output 09/04/16 09/04/16 09/05/16 15:00 23:00 07:00 Intake Total 860 ml 500 ml Balance 860 ml 500 ml Exam Review of Systems: CONSTITUTIONAL: No fevers, chills. PULMONARY: No sob CARDIOVASCULAR:intermittent chest pain/palpitations GASTROINTESTINAL: No nausea/vomiting. GENITOURINARY: No hematuria/dysuria. MUSCULOSKELETAL: No myagias/arthalgias. PSYCHIATRIC: The patient denies depression. NEUROLOGIC: No weakness Constitutional: alert, oriented Psych: no complaints Head: normocephalic ENMT: mucosa pink and moist Neck: jvd (8-9 cm water), supple Respiratory: clear to auscultation Cardiovascular: regular rate and rhythm Gastrointestinal: non-tender, soft Musculoskeletal: muscle tone (normal) Extremities: edema Neurological: other (No focal deficits) Results Result Diagram: 09/05/16 0635 09/05/16 0635 Results 24 hrs Laboratory Tests Test 09/04/16 17:00 09/05/16 00:43 09/05/16 06:35 Troponin I 0.018 0.018 Anion Gap 14 Basophils # 0.0 Basophils % 0.3 Blood Urea Nitrogen 14 Calcium Level 9.5 Carbon Dioxide Level 31 Chloride Level 104 Creatinine 1.05 Eosinophils # 0.1 Eosinophils % 1.2 Glucose Level 109 Hematocrit 43.9 Hemoglobin 14.9 Lymphocytes # 2.4 Lymphocytes % 23.3 Mean Corpuscular Hemoglobin 30.5 Mean Corpuscular Hemoglobin Concent 34.0 Mean Corpuscular Volume 89.8 Mean Platelet Volume 8.0 Monocytes # 0.9 Monocytes % 8.7 Neutrophils # 7.0 Neutrophils % 66.5 Nucleated Red Blood Cells # 0.0 Nucleated Red Blood Cells % 0.0 Platelet Count 272 Potassium Level 3.7 Red Blood Count 4.89 Red Cell Distribution Width 13.0 Sodium Level 145 H White Blood Count 10.5 Medications Medications Current Medications Amlodipine Besylate (Norvasc) 5 mg DAILY PO ; Start 09/04/16 at 09:00 Aspirin (Halfprin) 81 mg DAILY PO Last administered on 09/05/16 08:40; Admin Dose 81 MG; Start 09/04/16 at 09:00 Nitroglycerin (Nitroglycerin 2% Oint) 1 inch Q12 TD ; Start 09/03/16 at 12:00 Ondansetron HCl (Zofran Inj) 4 mg Q6H PRN IV NAUSEA AND/OR VOMITING; Start 09/03 at 14:00 Acetaminophen (Tylenol Tab) 650 mg Q6H PRN PO PAIN LEVEL 1-3 OR FEVER; Start at 14:00 Acetaminophen/ Hydrocodone Bitart ([place] (5/325)) 1 tab Q6H PRN PO MODERATE PAIN LEVEL 4-6; Start 09/03/16 at 14:00 Morphine Sulfate (morphine) 2 mg Q4H PRN IV SEVERE PAIN LEVEL 7-10; Start at 14:00 Docusate Sodium (Colace) 100 mg Q12H PRN PO CONSTIPATION; Start 09/03/16 at 14: 00 Magnesium Hydroxide (Milk Of Mag) 30 ml DAILY PRN PO CONSTIPATION; Start at 14:00 Sodium Biphosphate/ Sodium Phosphate (Fleet Enema) 133 ml DAILY PRN [place] CONSTIPATION; Start 09/03/16 at 14:00 Famotidine (Pepcid) 20 mg Q12 PO Last administered on 09/05/16 08:41; Admin Dose 20 MG; Start 09/03/16 at 21:00 Heparin Sodium (Porcine) (Heparin (5000 Units/0.5 ml)) 5,000 unit Q12 SC Last administered on 09/05/16 08:42; Admin Dose 5,000 UNIT; Start 09/03/16 at 21:00 Lorazepam (Ativan) 0.5 mg Q6H PRN IV ANXIETY; Start 09/03/16 at 14:00 Hydralazine HCl (Apresoline) 10 mg Q6H PRN IV SBP GREATER THAN 180; Start at 14:00 Nitroglycerin (Nitroglycerin (Sl Tab) 0.4 Mg) 1 tab Q5M PRN SL ANGINA; Start at 14:00 Isosorbide Mononitrate (Imdur) 30 mg DAILY PO Last administered on 09/03/16 18: 52; Admin Dose 30 MG; Start 09/03/16 at 18:30 Carvedilol (Coreg) 3.125 mg BID PO ; Start 09/03/16 at 21:00 Losartan Potassium (Cozaar) 25 mg DAILY PO Last administered on 09/05/16 08:41 ; Admin Dose 25 MG; Start 09/03/16 at 18:30 Atorvastatin Calcium (Lipitor) 80 mg QHS PO ; Start 09/06/16 at 21:00 Atorvastatin Calcium (Lipitor) 40 mg ONCE PO ; Start 09/05/16 at 21:00; Stop 09/05 at 23:00 LINDA RODRIGUEZ Sep 05, 2016 13:19
--- NOTE | 2016-09-05 13:58 | PN ---
Date/Time of Note Date/Time of Note DATE: 09/05/16 TIME: 13:57 Assessment/Plan Lines/Catheters IV Catheter Type (from Nrs): Saline Lock Allred in Place (from Nrs): No Assessment/Plan Chief Complaint/Hosp Course IMPRESSION: Coronary artery disease. RECOMMENDATIONS: The patient to have his cardiac catheterization evaluated by Dr. Jackson for possible angioplasty. If angioplasty and PCI is not possible, then he would be evaluated for possible CABG. Discussed with the patient and the family. All questions answered. Problems: Subjective 24 Hr Interval Summary Constitutional: ambulates, improved Pain Control: well controlled Exam/Review of Systems Vital Signs Vitals Vital Signs Date Time Temp Pulse Resp B/P Pulse Ox O2 Delivery O2 Flow Rate FiO2 09/05/16 13:55 86 09/05/16 12:15 98.4 20 118/70 96 09/03/16 16:04 21 09/03/16 10:30 Room Air Intake and Output 09/04/16 09/04/16 09/05/16 15:00 23:00 07:00 Intake Total 860 ml 500 ml Balance 860 ml 500 ml Exam Eyes: EOMI, nl conjunctiva, nl lids, nl sclera ENMT: mucosa pink and moist, nl external ears & nose, nl lips & teeth, nl nasal mucosa & septum Neck: non-tender, supple Respiratory: clear to auscultation, normal air movement Cardiovascular: nl pulses, regular rate and rhythm Results Result Diagram: 09/05/16 0635 09/05/16 0635 VINH SINGH MD Sep 05, 2016 13:58
[2016-09-05] MEDS ORDERED: ATORVASTATIN 40 MG TAB PO SCH (21:00)
[2016-09-06] VITALS (13 sets, daily range): BP systolic 115–143; BP diastolic 68–90; PULSE 60–101; RESP 18–20
[2016-09-06 07:42] LABS: POTASSIUM 4.2 mmol/L (3.5-5.1)
[2016-09-06 07:45] LABS: CREATININE 0.98 mg/dl (0.61-1.24)
[2016-09-06 07:46] LABS: CALCIUM 9.6 mg/dl (8.4-10.2)
[2016-09-06 07:49] LABS: BASOPHILS % 0.3 % (0.0-2.0); EOSINOPHILS # 0.2 10^3/ul (0.0-0.5); EOSINOPHILS % 1.7 % (0.0-7.0); HEMATOCRIT 43.4 % (42.0-52.0); HEMOGLOBIN 14.6 g/dl (14.0-18.0); LYMPHOCYTES % 21.5 % (15.0-51.0); MEAN CORPUSCULAR HEMOGLOBIN 30.5 pg (29.0-33.0); MEAN CORPUSCULAR HGB CONC 33.6 g/dl (32.0-37.0); MEAN CORPUSCULAR VOLUME 90.7 fl (82.0-101.0); MEAN PLATELET VOLUME 8.4 fl (7.4-10.4); MONOCYTE # 0.7 10^3/ul (0.3-0.9); NEUTROPHIL # 6.4 10^3/ul (1.6-7.5); NEUTROPHILS % 68.5 % (39.0-77.0); PLATELET COUNT 279 10^3/UL (140-440); RED BLOOD COUNT 4.78 10^6/ul (4.70-6.10); UNCORRECTED WBC 9.3 10^3/ul (4.8-10.8); WHITE BLOOD COUNT 9.3 10^3/ul (4.8-10.8)
[2016-09-06 07:57] LABS: CONDITION 1
[2016-09-06] MEDS: AMLODIPINE 5 MG TAB PO SCH (09:00)
[2016-09-06] MEDS: NITROGLYCERIN 2% 1 GM OINT PKT TD SCH ×2 (09:00→21:00)
[2016-09-06] MEDS: ISOSORBIDE MONONITRATE(SR)30 MG TAB PO SCH (09:42)
[2016-09-06] MEDS: ASPIRIN (EC) 81 MG TAB PO SCH (09:42)
[2016-09-06] MEDS: FAMOTIDINE 20 MG TAB PO SCH ×2 (09:43→21:47)
[2016-09-06] MEDS: LOSARTAN 25 MG TAB PO SCH (09:43)
[2016-09-06] MEDS: HEPARIN 5,000 UNIT/0.5 ML SYG SC SCH ×2 (09:48→21:53)
--- NOTE | 2016-09-06 10:42 | CONS ---
Date/Time of Note Date/Time of Note DATE: 09/06/16 TIME: 10:40 Assessment/Plan Assessment/Plan Additional Assessment/Plan 1.cad-obstructive by osh cath at [facility] - per DR. Jackson prior cath and give reccomendations thereafter as to potential stent placement for treatment of disease versus cabg - LHC planned tomorrow 2.Chest pain - now resolved, awaiting LHC 3.HTN - well Rx - on med therapy now 4.HL 5.cardiomyopathy-LVEF 45% - not in CHF by exam Consultation Date/Type/Reason Admit Date/Time Sep 03, 2016 at 10:09 Initial Consult Date Type of Consultation: Cardiology Referring Provider: LAKESHA FARNSWORTH MD 24 HR Interval Summary Free Text/Dictation No acute events. CP free now - LHC planned with Dr. Jackson tomorrow am. ROS: No fever, no chills, no nausea, no vomiting, no diarrhea/constipation No recent weight changes No chest pain, no PND, no orthopnea No dizziness, blurred vision No thirst, no heat or cold intolerance Exam/Review of Systems Vital Signs Vitals Vital Signs Date Time Temp Pulse Resp B/P Pulse Ox O2 Delivery O2 Flow Rate FiO2 09/06/16 08:32 67 09/06/16 07:44 98.7 20 115/68 98 09/03/16 16:04 21 09/03/16 10:30 Room Air Intake and Output 09/05/16 09/05/16 09/06/16 15:00 23:00 07:00 Intake Total 1200 ml 400 ml Balance 1200 ml 400 ml Exam General: WN/WD/NAD, AOx 3 HEENT: Unicetric/atraumatic/EOMI (follow commands) NECK: JVD elevated, no thyromegaly Lymph: no lymphadenopathy HEART: regular with no S3, II/ systolic murmur at apex LUNGS: Coarse sounds ABD: soft, NT, ND, +BS : Intact Neuro: non focal SKIN: chronic changes EXT: trace edema Results Result Diagram: 09/06/16 0709/06/16 07 Results 24 hrs Laboratory Tests Test 09/06/16 07:01 Anion Gap 15 Basophils # 0.0 Basophils % 0.3 Blood Urea Nitrogen 12 Calcium Level 9.6 Carbon Dioxide Level 30 Chloride Level 103 Creatinine 0.98 Eosinophils # 0.2 Eosinophils % 1.7 Glucose Level 102 Hematocrit 43.4 Hemoglobin 14.6 Lymphocytes # 2.0 Lymphocytes % 21.5 Mean Corpuscular Hemoglobin 30.5 Mean Corpuscular Hemoglobin Concent 33.6 Mean Corpuscular Volume 90.7 Mean Platelet Volume 8.4 Monocytes # 0.7 Monocytes % 8.0 Neutrophils # 6.4 Neutrophils % 68.5 Nucleated Red Blood Cells # 0.0 Nucleated Red Blood Cells % 0.0 Platelet Count 279 Potassium Level 4.2 Red Blood Count 4.78 Red Cell Distribution Width 13.0 Sodium Level 144 White Blood Count 9.3 Medications Medications Current Medications Amlodipine Besylate (Norvasc) 5 mg DAILY PO ; Start 09/04/16 at 09:00 Aspirin (Halfprin) 81 mg DAILY PO Last administered on 09/06/16 09:42; Admin Dose 81 MG; Start 09/04/16 at 09:00 Nitroglycerin (Nitroglycerin 2% Oint) 1 inch Q12 TD ; Start 09/03/16 at 12:00 Ondansetron HCl (Zofran Inj) 4 mg Q6H PRN IV NAUSEA AND/OR VOMITING; Start 09/03 at 14:00 Acetaminophen (Tylenol Tab) 650 mg Q6H PRN PO PAIN LEVEL 1-3 OR FEVER; Start at 14:00 Acetaminophen/ Hydrocodone Bitart ([place] (5/325)) 1 tab Q6H PRN PO MODERATE PAIN LEVEL 4-6; Start 09/03/16 at 14:00 Morphine Sulfate (morphine) 2 mg Q4H PRN IV SEVERE PAIN LEVEL 7-10; Start at 14:00 Docusate Sodium (Colace) 100 mg Q12H PRN PO CONSTIPATION; Start 09/03/16 at 14: 00 Magnesium Hydroxide (Milk Of Mag) 30 ml DAILY PRN PO CONSTIPATION; Start at 14:00 Sodium Biphosphate/ Sodium Phosphate (Fleet Enema) [address] CONSTIPATION; Start 09/03/16 at 14:00 Famotidine (Pepcid) 20 mg Q12 PO Last administered on 09/06/16 09:43; Admin Dose 20 MG; Start 09/03/16 at 21:00 Heparin Sodium (Porcine) (Heparin (5000 Units/0.5 ml)) 5,000 unit Q12 SC Last administered on 09/06/16 09:48; Admin Dose 5,000 UNIT; Start 09/03/16 at 21:00 Lorazepam (Ativan) 0.5 mg Q6H PRN IV ANXIETY; Start 09/03/16 at 14:00 Hydralazine HCl (Apresoline) 10 mg Q6H PRN IV SBP GREATER THAN 180; Start at 14:00 Nitroglycerin (Nitroglycerin (Sl Tab) 0.4 Mg) 1 tab Q5M PRN SL ANGINA; Start at 14:00 Isosorbide Mononitrate (Imdur) 30 mg DAILY PO Last administered on 09/06/16 09: 42; Admin Dose 30 MG; Start 09/03/16 at 18:30 Carvedilol (Coreg) 3.125 mg BID PO Last administered on 09/06/16 09:42; Admin Dose 3.125 MG; Start 09/03/16 at 21:00 Losartan Potassium (Cozaar) 25 mg DAILY PO Last administered on 09/06/16 09:43 ; Admin Dose 25 MG; Start 09/03/16 at 18:30 Atorvastatin Calcium (Lipitor) 80 mg QHS PO ; Start 09/06/16 at 21:00 LUZ SAEED MD Sep 06, 2016 10:42
--- NOTE | 2016-09-06 10:55 | PN ---
Date/Time of Note Date/Time of Note DATE: 09/06/16 TIME: 10:53 Assessment/Plan VTE Prophylaxis VTE Prophylaxis Intervention: heparin Lines/Catheters IV Catheter [facility] (from [facility]): Saline Lock Urinary Cath still in place: No Assessment/Plan Assessment/Plan 61-year-old male coming in with chest pain and left arm numbness for 2 days prior to admission, transferred from outside hospital with findings of 90% LAD stenosis on heart catheterization. 1. Chest pain.- has r/o'ed for acute coronary syndrome at outside hospital; however, his left heart cath is abnormal as mentioned above, - f/u cardiology consult rec's - will likely need repeat heart catheterization and also contact cardiothoracic surgery team to see if the patient indeed needs to have stenting placed versus bypass surgery given his 90 % LAD blockage and his abnormal anatomy. (Of note I spoke with Dr. Carmen the mint machine operator who performed the left heart cath at the outside hospital. Apparently for some reason he is not able to see the patient here as he "is not engineering production liaison here." ) - continue current cardiac medicines as well including his Norvasc and aspirin. - Lipid - elevated LDL - will start atorvastatin 80 mg po qhs - [facility] 09/07/16 2. Chronic obstructive pulmonary disease, no present issues. He is on DuoNeb p.r.n. 3. Gastrointestinal (GI) prophylaxis, we will put him on H2 frances. 4. Deep venous thrombosis prophylaxis, heparin subcutaneously. dispo - f/u recs, repeat angiogram tomorrow - as per clinical course this progress note took greater than 30 minutes to complete Subjective 24 Hr Interval Summary Free Text/Dictation Patient had no overnight events. Denies any chest pain or dizziness. Answered all of his questions. Spoke to him about the care plan. 15 minutes spent. Exam/Review of Systems Vital Signs Vitals Vital Signs Date Time Temp Pulse Resp B/P Pulse Ox O2 Delivery O2 Flow Rate FiO2 09/06/16 08:32 67 09/06/16 07:44 98.7 20 115/68 98 09/03/16 16:04 21 09/03/16 10:30 Room Air Intake and Output 09/05/16 09/05/16 09/06/16 15:00 23:00 07:00 Intake Total 1200 ml 400 ml Balance 1200 ml 400 ml Exam Gen Rajesh: NAD, AAOx4 HEENT: NC/AT, PERRLA, EOMI, no pharyngeal erythema, no tonsillar exudates, no lymphadenopathy, no JVD, no carotid bruits NECK: supple, no thyromegaly THORAX: symmetrical, no obvious deformities CV: S1S2, RRR, no M/G/R Lungs: CTAB no W/C/R/R Abd: soft, NT/ND, +BS, no rebound, no guarding, neg HSM EXT: no edema, no ecchymosis, no clubbing, FROM Neuro: CN II-XII grossly intact, no focal deficits Psych: good mentation, alert and oriented, good mood and affect Skin: C/D/I Results Result Diagram: 09/06/16 0709/06/16 07 Results 24 hrs Laboratory Tests Test 09/06/16 07:01 Anion Gap 15 Basophils # 0.0 Basophils % 0.3 Blood Urea Nitrogen 12 Calcium Level 9.6 Carbon Dioxide Level 30 Chloride Level 103 Creatinine 0.98 Eosinophils # 0.2 Eosinophils % 1.7 Glucose Level 102 Hematocrit 43.4 Hemoglobin 14.6 Lymphocytes # 2.0 Lymphocytes % 21.5 Mean Corpuscular Hemoglobin 30.5 Mean Corpuscular Hemoglobin Concent 33.6 Mean Corpuscular Volume 90.7 Mean Platelet Volume 8.4 Monocytes # 0.7 Monocytes % 8.0 Neutrophils # 6.4 Neutrophils % 68.5 Nucleated Red Blood Cells # 0.0 Nucleated Red Blood Cells % 0.0 Platelet Count 279 Potassium Level 4.2 Red Blood Count 4.78 Red Cell Distribution Width 13.0 Sodium Level 144 White Blood Count 9.3 Medications Medications Current Medications Amlodipine Besylate (Norvasc) 5 mg DAILY PO ; Start 09/04/16 at 09:00 Aspirin (Halfprin) 81 mg DAILY PO Last administered on 09/06/16t 09:42; Admin Dose 81 MG; Start 09/04/16 at 09:00 Nitroglycerin (Nitroglycerin 2% Oint) 1 inch Q12 TD ; Start 09/03/16 at 12:00 Ondansetron HCl (Zofran Inj) 4 mg Q6H PRN IV NAUSEA AND/OR VOMITING; Start 09/03 at 14:00 Acetaminophen (Tylenol Tab) 650 mg Q6H PRN PO PAIN LEVEL 1-3 OR FEVER; Start at 14:00 Acetaminophen/ Hydrocodone Bitart ([place] (5/325)) 1 tab Q6H PRN PO MODERATE PAIN LEVEL 4-6; Start 09/03/16 at 14:00 Morphine Sulfate (morphine) 2 mg Q4H PRN IV SEVERE PAIN LEVEL 7-10; Start at 14:00 Docusate Sodium (Colace) 100 mg Q12H PRN PO CONSTIPATION; Start 09/03/16 at 14: 00 Magnesium Hydroxide (Milk Of Mag) 30 ml DAILY PRN PO CONSTIPATION; Start at 14:00 Sodium Biphosphate/ Sodium Phosphate (Fleet Enema) 133 ml DAILY PRN [place] CONSTIPATION; Start 09/03/16 at 14:00 Famotidine (Pepcid) 20 mg Q12 PO Last administered on 09/06/16 09:43; Admin Dose 20 MG; Start 09/03/16 at 21:00 Heparin Sodium (Porcine) (Heparin (5000 Units/0.5 ml)) 5,000 unit Q12 SC Last administered on 09/06/16 09:48; Admin Dose 5,000 UNIT; Start 09/03/16 at 21:00 Lorazepam (Ativan) 0.5 mg Q6H PRN IV ANXIETY; Start 09/03/16 at 14:00 Hydralazine HCl (Apresoline) 10 mg Q6H PRN IV SBP GREATER THAN 180; Start at 14:00 Nitroglycerin (Nitroglycerin (Sl Tab) 0.4 Mg) 1 tab Q5M PRN SL ANGINA; Start at 14:00 Isosorbide Mononitrate (Imdur) 30 mg DAILY PO Last administered on 09/06/16 09: 42; Admin Dose 30 MG; Start 09/03/16 at 18:30 Carvedilol (Coreg) 3.125 mg BID PO Last administered on 09/06/16 09:42; Admin Dose 3.125 MG; Start 09/03/16 at 21:00 Losartan Potassium (Cozaar) 25 mg DAILY PO Last administered on 09/06/16 09:43 ; Admin Dose 25 MG; Start 09/03/16 at 18:30 Atorvastatin Calcium (Lipitor) 80 mg QHS PO ; Start 09/06/16 at 21:00 LAKESHA FARNSWORTH MD Sep 06, 2016 10:55
--- NOTE | 2016-09-06 15:19 | PN ---
Date/Time of Note Date/Time of Note DATE: 09/06/16 TIME: 15:19 Assessment/Plan VTE Prophylaxis VTE Prophylaxis Intervention: other Lines/Catheters IV [facility]from [facility] Urinary Cath still in place: No Assessment/Plan Chief Complaint/Hosp Course IMPRESSION: Coronary artery disease. RECOMMENDATIONS: The patient to have his cardiac catheterization evaluated by Dr. Jackson for possible angioplasty. If angioplasty and PCI is not possible, then he would be evaluated for possible CABG. Discussed with the patient and the family. All questions answered. Problems: Subjective 24 Hr Interval Summary Cardiovascular: no complaints Gastrointestinal: no complaints Genitourinary: no complaints Musculoskeletal: no complaints Skin: no complaints Exam/Review of Systems Vital Signs Vitals Vital Signs Date Time Temp Pulse Resp B/P Pulse Ox O2 Delivery O2 Flow Rate FiO2 09/06/16 14:18 90 09/06/16 11:35 98.3 20 129/90 98 09/03/16 16:04 21 09/03/16 10:30 Room Air Intake and Output 09/05/16 09/05/16 09/06/16 15:00 23:00 07:00 Intake Total 1200 ml 400 ml Balance 1200 ml 400 ml Exam ENMT: nl external ears & nose, nl lips & teeth, nl nasal mucosa & septum Neck: non-tender, supple Respiratory: clear to auscultation, normal air movement Cardiovascular: nl pulses, regular rate and rhythm Results Result Diagram: 09/06/16 0709/06/16 07 Results 24 hrs Laboratory Tests Test 09/06/16 07:01 Anion Gap 15 Basophils # 0.0 Basophils % 0.3 Blood Urea Nitrogen 12 Calcium Level 9.6 Carbon Dioxide Level 30 Chloride Level 103 Creatinine 0.98 Eosinophils # 0.2 Eosinophils % 1.7 Glucose Level 102 Hematocrit 43.4 Hemoglobin 14.6 Lymphocytes # 2.0 Lymphocytes % 21.5 Mean Corpuscular Hemoglobin 30.5 Mean Corpuscular Hemoglobin Concent 33.6 Mean Corpuscular Volume 90.7 Mean Platelet Volume 8.4 Monocytes # 0.7 Monocytes % 8.0 Neutrophils # 6.4 Neutrophils % 68.5 Nucleated Red Blood Cells # 0.0 Nucleated Red Blood Cells % 0.0 Platelet Count 279 Potassium Level 4.2 Red Blood Count 4.78 Red Cell Distribution Width 13.0 Sodium Level 144 White Blood Count 9.3 Medications Medications Current Medications Amlodipine Besylate (Norvasc) 5 mg DAILY PO ; Start 09/04/16 at 09:00 Aspirin (Halfprin) 81 mg DAILY PO Last administered on 09/06/16 09:42; Admin Dose 81 MG; Start 09/04/16 at 09:00 Nitroglycerin (Nitroglycerin 2% Oint) 1 inch Q12 TD ; Start 09/03/16 at 12:00 Ondansetron HCl (Zofran Inj) 4 mg Q6H PRN IV NAUSEA AND/OR VOMITING; Start 09/03 at 14:00 Acetaminophen (Tylenol Tab) 650 mg Q6H PRN PO PAIN LEVEL 1-3 OR FEVER; Start at 14:00 Acetaminophen/ Hydrocodone Bitart ([place] (5/325)) 1 tab Q6H PRN PO MODERATE PAIN LEVEL 4-6; Start 09/03/16 at 14:00 Morphine Sulfate (morphine) 2 mg Q4H PRN IV SEVERE PAIN LEVEL 7-10; Start at 14:00 Docusate Sodium (Colace) 100 mg Q12H PRN PO CONSTIPATION; Start 09/03/16 at 14: 00 Magnesium Hydroxide (Milk Of Mag) 30 ml DAILY PRN PO CONSTIPATION; Start at 14:00 Sodium Biphosphate/ Sodium Phosphate (Fleet Enema) 133 ml DAILY PRN [place] CONSTIPATION; Start 09/03/16 at 14:00 Famotidine (Pepcid) 20 mg Q12 PO Last administered on 09/06/16 09:43; Admin Dose 20 MG; Start 09/03/16 at 21:00 Heparin Sodium (Porcine) (Heparin (5000 Units/0.5 ml)) 5,000 unit Q12 SC Last administered on 09/06/16 09:48; Admin Dose 5,000 UNIT; Start 09/03/16 at 21:00 Lorazepam (Ativan) 0.5 mg Q6H PRN IV ANXIETY; Start 09/03/16 at 14:00 Hydralazine HCl (Apresoline) 10 mg Q6H PRN IV SBP GREATER THAN 180; Start at 14:00 Nitroglycerin (Nitroglycerin (Sl Tab) 0.4 Mg) 1 tab Q5M PRN SL ANGINA; Start at 14:00 Isosorbide Mononitrate (Imdur) 30 mg DAILY PO Last administered on 09/06/16 09: 42; Admin Dose 30 MG; Start 09/03/16 at 18:30 Carvedilol (Coreg) 3.125 mg BID PO Last administered on 09/06/16 09:42; Admin Dose 3.125 MG; Start 09/03/16 at 21:00 Losartan Potassium (Cozaar) 25 mg DAILY PO Last administered on 09/06/16 09:43 ; Admin Dose 25 MG; Start 09/03/16 at 18:30 Atorvastatin Calcium (Lipitor) 80 mg QHS PO ; Start 09/06/16 at 21:00 VINH SINGH MD Sep 06, 2016 15:19
[2016-09-06] MEDS ORDERED: ATORVASTATIN 40 MG TAB PO SCH (21:00)
[2016-09-07] VITALS (25 sets, daily range): BP systolic 102–137; BP diastolic 57–79; PULSE 64–83; RESP 11–76
[2016-09-07 06:24] LABS: POTASSIUM 4.1 mmol/L (3.5-5.1)
[2016-09-07 06:26] LABS: BASOPHILS % 0.5 % (0.0-2.0); EOSINOPHILS # 0.2 10^3/ul (0.0-0.5); EOSINOPHILS % 1.5 % (0.0-7.0); HEMATOCRIT 42.2 % (42.0-52.0); HEMOGLOBIN 14.2 g/dl (14.0-18.0); LYMPHOCYTES # 2.3 10^3/ul (0.8-2.9); MEAN CORPUSCULAR HEMOGLOBIN 30.3 pg (29.0-33.0); MEAN CORPUSCULAR HGB CONC 33.7 g/dl (32.0-37.0); MEAN CORPUSCULAR VOLUME 90.1 fl (82.0-101.0); MEAN PLATELET VOLUME 8.1 fl (7.4-10.4); MONOCYTE # 0.9 10^3/ul (0.3-0.9); MONOCYTES % 8.7 % (0.0-11.0); NEUTROPHIL # 7.1 10^3/ul (1.6-7.5); NEUTROPHILS % 67.3 % (39.0-77.0); PLATELET COUNT 296 10^3/UL (140-440); RED BLOOD COUNT 4.68 10^6/ul (4.70-6.10); RED CELL DISTRIBUTION WIDTH 13.2 % (11.5-14.5); UNCORRECTED WBC 10.5 10^3/ul (4.8-10.8); WHITE BLOOD COUNT 10.5 10^3/ul (4.8-10.8)
[2016-09-07 06:27] LABS: CREATININE 0.93 mg/dl (0.61-1.24)
[2016-09-07 06:28] LABS: CALCIUM 9.2 mg/dl (8.4-10.2)
[2016-09-07 06:42] LABS: CONDITION 1
[2016-09-07] MEDS ORDERED: FENTAnyl 50 MCG/ML VIAL ONE (07:55)
[2016-09-07] MEDS ORDERED: HEPARIN 1000 UNITS/ML 10 ML INJ ONE (07:55)
[2016-09-07] MEDS ORDERED: VERAPAMIL 5 MG INJ ONE (07:55)
[2016-09-07] MEDS ORDERED: IODIXANOL LOCM 100 ML BTL ONE (07:55)
[2016-09-07] MEDS ORDERED: MIDAZOLAM 1 MG/ML 2 ML INJ ONE (07:55)
[2016-09-07] MEDS ORDERED: LIDOCAINE 1% (MDV) 20 ML INJ ONE (07:55)
[2016-09-07] MEDS ORDERED: NITROGLYCERIN (IC) 100 MCG/ML INJ ONE (07:55)
[2016-09-07] MEDS ORDERED: IODIXANOL LOCM 50 ML BTL ONE (07:55)
[2016-09-07] MEDS ORDERED: SOD CHLORIDE 0.9% 500 ML ONE (08:20)
[2016-09-07] MEDS: ASPIRIN (EC) 81 MG TAB PO SCH (08:34)
[2016-09-07] MEDS: FAMOTIDINE 20 MG TAB PO SCH (08:34)
[2016-09-07] MEDS: ISOSORBIDE MONONITRATE(SR)30 MG TAB PO SCH (08:35)
[2016-09-07] MEDS: AMLODIPINE 5 MG TAB PO SCH (08:35)
[2016-09-07] MEDS: LOSARTAN 25 MG TAB PO SCH (08:35)
[2016-09-07] MEDS: HEPARIN 5,000 UNIT/0.5 ML SYG SC SCH (08:40)
[2016-09-07] MEDS: NITROGLYCERIN 2% 1 GM OINT PKT TD SCH (08:41)
[2016-09-07] MEDS ORDERED: SOD CHLORIDE 0.9% 1,000 ML IV SCH (10:34)
--- NOTE | 2016-09-07 10:34 | CONS ---
Date/Time of Note Date/Time of Note DATE: 09/07/16 TIME: 10:31 Assessment/Plan Assessment/Plan Chief Complaint/Hosp Course IMp: 1.cad-obstructive by osh cath at [facility] s/p [facility] today with 40-50% ostail LAD stenosis arising from seperate ostia 2.Chest pain 3.HTn 4.HL 5.cardiomyopathy-LVEF 45% Recc: -tele -serial ecg's -Continue asa/statin -Continue coreg/norvasc/imdur/losartan -Routine post-cath care with proabable d/c on medical therapy later this afternoon with close outpatient f/u - Problems: Consultation Date/Type/Reason Admit Date/Time Sep 03, 2016 at 10:09 Initial Consult Date 09/04/2016 Type of Consultation: Cardiology Reason for Consultation cad Referring Provider: LAKESHA FARNSWORTH MD Exam/Review of Systems Vital Signs Vitals Vital Signs Date Time Temp Pulse Resp B/P Pulse Ox O2 Delivery O2 Flow Rate FiO2 09/07/16 08:48 71 09/07/16 07:58 98.7 18 129/78 96 09/03/16 16:04 21 09/03/16 10:30 Room Air Intake and Output 09/06/16 09/06/16 09/07/16 15:00 23:00 07:00 Intake Total 360 ml 840 ml Balance 360 ml 840 ml Exam Review of Systems: CONSTITUTIONAL: No fevers, chills. PULMONARY: No sob CARDIOVASCULAR: No chest pain/palpitations GASTROINTESTINAL: No nausea/vomiting. GENITOURINARY: No hematuria/dysuria. MUSCULOSKELETAL: No myagias/arthalgias. PSYCHIATRIC: The patient denies depression. NEUROLOGIC: No weakness Constitutional: alert Head: normocephalic Neck: jvd (9 cm water) Respiratory: clear to auscultation Cardiovascular: regular rate and rhythm Gastrointestinal: non-tender, soft Musculoskeletal: muscle tone (normal) Extremities: edema (normal) Neurological: other (No focal deficits) Results Result Diagram: 09/07/16 0555 09/07/16 0555 Results 24 hrs Laboratory Tests Test 09/07/16 05:55 Anion Gap 14 Basophils # 0.0 Basophils % 0.5 Blood Urea Nitrogen 13 Calcium Level 9.2 Carbon Dioxide Level 30 Chloride Level 103 Creatinine 0.93 Eosinophils # 0.2 Eosinophils % 1.5 Glucose Level 99 Hematocrit 42.2 Hemoglobin 14.2 Lymphocytes # 2.3 Lymphocytes % 22.0 Mean Corpuscular Hemoglobin 30.3 Mean Corpuscular Hemoglobin Concent 33.7 Mean Corpuscular Volume 90.1 Mean Platelet Volume 8.1 Monocytes # 0.9 Monocytes % 8.7 Neutrophils # 7.1 Neutrophils % 67.3 Nucleated Red Blood Cells # 0.0 Nucleated Red Blood Cells % 0.0 Platelet Count 296 Potassium Level 4.1 Red Blood Count 4.68 L Red Cell Distribution Width 13.2 Sodium Level 143 White Blood Count 10.5 Medications Medications Current Medications Amlodipine Besylate (Norvasc) 5 mg DAILY PO ; Start 09/04/16 at 09:00 Aspirin (Halfprin) 81 mg DAILY PO Last administered on 09/07/16 08:34; Admin Dose 81 MG; Start 09/04/16 at 09:00 Nitroglycerin (Nitroglycerin 2% Oint) 1 inch Q12 TD ; Start 09/03/16 at 12:00 Ondansetron HCl (Zofran Inj) 4 mg Q6H PRN IV NAUSEA AND/OR VOMITING; Start 09/03 at 14:00 Acetaminophen (Tylenol Tab) 650 mg Q6H PRN PO PAIN LEVEL 1-3 OR FEVER; Start at 14:00 Acetaminophen/ Hydrocodone Bitart ([place] (5/325)) 1 tab Q6H PRN PO MODERATE PAIN LEVEL 4-6; Start 09/03/16 at 14:00 Morphine Sulfate (morphine) 2 mg Q4H PRN IV SEVERE PAIN LEVEL 7-10; Start at 14:00 Docusate Sodium (Colace) 100 mg Q12H PRN PO CONSTIPATION; Start 09/03/16 at 14: 00 Magnesium Hydroxide (Milk Of Mag) 30 ml DAILY PRN PO CONSTIPATION; Start at 14:00 Sodium Biphosphate/ Sodium Phosphate (Fleet Enema) 133 ml DAILY PRN [place] CONSTIPATION; Start 09/03/16 at 14:00 Famotidine (Pepcid) 20 mg Q12 PO Last administered on 09/07/16 08:34; Admin Dose 20 MG; Start 09/03/16 at 21:00 Heparin Sodium (Porcine) (Heparin (5000 Units/0.5 ml)) 5,000 unit Q12 SC Last administered on 09/07/16 08:40; Admin Dose 5,000 UNIT; Start 09/03/16 at 21:00 Lorazepam (Ativan) 0.5 mg Q6H PRN IV ANXIETY; Start 09/03/16 at 14:00 Hydralazine HCl (Apresoline) 10 mg Q6H PRN IV SBP GREATER THAN 180; Start at 14:00 Nitroglycerin (Nitroglycerin (Sl Tab) 0.4 Mg) 1 tab Q5M PRN SL ANGINA; Start at 14:00 Isosorbide Mononitrate (Imdur) 30 mg DAILY PO Last administered on 09/07/16 08: 35; Admin Dose 30 MG; Start 09/03/16 at 18:30 Carvedilol (Coreg) 3.125 mg BID PO Last administered on 09/07/16 08:34; Admin Dose 3.125 MG; Start 09/03/16 at 21:00 Losartan Potassium (Cozaar) 25 mg DAILY PO Last administered on 09/07/16 08:35 ; Admin Dose 25 MG; Start 09/03/16 at 18:30 Atorvastatin Calcium (Lipitor) 80 mg QHS PO ; Start 09/06/16 at 21:00 LINDA RODRIGUEZ Sep 07, 2016 10:34
[2016-09-07] MEDS ORDERED: ACETAMINOPHEN 325 MG TAB PO PRN (11:00)
[2016-09-07] MEDS ORDERED: morphine 2 MG INJ IV PRN (11:00)
--- NOTE | 2016-09-07 12:52 | CARRPT ---
DATE OF PROCEDURE: 09/07/2016 TYPE OF PROCEDURE: 1. Left heart catheterization. 2. Coronary angiography. 3. Measurement of left ventricular end diastolic pressure. ATTENDING PHYSICIAN: Linda Jackson MD REFERRING PHYSICIAN: Dr. Hoffman from the hospitalist service. INDICATION: Abnormal cardiac stress test, positive ischemia, catheterization from outside hospital due to findings of possible high grade stenosis in ostial LAD with anomalous vessels, high risk procedure by Dr. Holder. BRIEF HISTORY AND HOSPITAL COURSE: Mr. Anderson is a 61-year-old male with history of hypertension and dyslipidemia who had initially presented to outside hospital with complaints of dizziness. The patient ruled out for myocardial infarction, underwent a cardiac stress test revealing positive ischemia with mildly depressed left ventricular ejection fraction of 46%. The patient was taken to the cardiac catheterization lab Dr. Holder at [facility] where he was found to have a possible high grade ostial LAD stenosis in an anomalous LAD that arose from separate ostia routine LAD and circumflex. The patient was therefore transferred to [facility] due to possible high risk nature for PCI. PROCEDURE: After informed consent was obtained, the patient was brought to the [facility] cardiac catheterization lab where his right radial area was prepped and draped in usual sterile fashion. Lidocaine 2% was infiltrated into the right radial area in order to achieve adequate local anesthesia. Using modified Seldinger technique, the right artery was cannulated and a 6-Iranian arterial sheath was placed. A 6-Iranian JR4 catheter was used to cannulate the right coronary arterial ostium. With contrast injection, multiple views of the right coronary arterial system were obtained. JR4 was removed over a guidewire and a JL3.5 was used to cannulate the LAD ostium, after which contrast injection, multiple views of this vessel were obtained. The JL3.5 was then removed and an ostial LAD and placed the ostium of the circumflex and subsequently multiple views of this vessel were obtained. The JL3.5 was removed, a JR4 was then used to cross the LV and placed in left ventricle and left ventricular end-diastolic pressure was measured and pulled back across the aortic valve to assess for significant gradient, which there was not and removed. Subsequently, at this time, this completed the procedure. The patient's catheter was removed. The patient's sheath was removed. TR band was applied. There were no noted complications. FINDINGS: 1. Coronary angiography. Right coronary artery proximally is a 3.5 mm vessel and it is a codominant vessel and gives off a PDA that covers a very long territory with luminal irregularities up to approximately 20%. The LAD does arise from a separate ostium as noted earlier and has approximately a 40% to 50 % ostial stenosis with good reflux catheter and no significant damping. The mid portion of the LAD then has a 20% stenosis. There are 2 proximal branching diagonals, each 2 mm with no significant focal stenoses. The circumflex arising from separate ostia proximally is a 3.5 mm vessel with no significant focal stenoses, gives off a very large mid branching obtuse marginal 3 mm with no significant focal stenoses and 2 distal branching obtuse marginals each approximately 2 mm with no significant focal stenoses. Measurement of left ventricular and diastolic pressure of 12 to 13. No significant aortic stenosis by gradient. TOTAL FLUOROSCOPY TIME: 6.3 minutes. TOTAL CONTRAST: 65 mL. IMPRESSION: 1. Moderate nonobstructive coronary artery disease involving ostial LAD stenosis. 2. Normal left heart filling pressures. 3. 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 4. No significant aortic stenosis by gradient. RECOMMENDATIONS: In light of procedure findings at this time would: 1. Maximize medical management. 2. Aggressive risk factor reduction. 3. The patient will be readmitted to telemetry floor for post-catheterization observation and continued management of presenting symptoms with probable discharge later this afternoon. 4. Patient will have a followup appointment with me, at which time we will continue to follow symptoms closely and assess for any development of any significant chest pain and need for any further evaluation of his coronary anatomy. Thank you for allowing me to take part in the care of this patient. I will continue to follow very closely with you with further recommendations to be made as the patient progresses through inpatient hospital course. Dictated By: LINDA RODRÍGUEZ/MARCELINA Conf#: [id number] DID#: [id number] CC: ROSELIA HOFFMAN MD;*EndCC* MTDD
[2016-09-07] MEDS ORDERED: CARV3.1260 PO (13:50)
[2016-09-07] MEDS ORDERED: AMLO-145 PO (13:50)
[2016-09-07] MEDS ORDERED: ISOS30TA5 PO (13:50)
[2016-09-07] MEDS ORDERED: ASPI-664 PO (13:50)
[2016-09-07] MEDS ORDERED: LOSA25TA2 PO (13:50)
[2016-09-07] MEDS ORDERED: ATOR40TA68 PO (13:50)
[2016-09-07] MEDS ORDERED: NIT4 SL (13:50)
--- NOTE | 2016-09-07 13:54 | PDOCDIS ---
Discharge Instructions DIAGNOSIS Discharge Diagnosis: Chest Pain CONDITION Patient Condition: Stable HOME CARE INSTRUCTIONS: Diet Instructions: 2gm NaSpecial Diet: npo today ACTIVITY: Activity Restrictions: Slowly Increase Activity Rest between Activity Avoid heavy lifting FOLLOW UP/APPOINTMENTS Appointments follow up with primary care physician in one week. follow up with Dr. Jackson in his office in 2 weeks. OTHER ORDERS: Other Orders: Chest Pain - ACS ruled out. You need to take atorvastatin, coreg, aspirin, losartan and NTG SL as prescribed LAKESHA FARNSWORTH MD Sep 07, 2016 13:54
--- NOTE | 2016-09-07 15:21 | DS ---
DATE OF ADMISSION: 09/03/2016 DATE OF DISCHARGE: 09/07/2016 DISCHARGE DIAGNOSES: Chest pain, acute coronary syndrome ruled out, chronic obstructive pulmonary d isease. HOSPITAL COURSE: This is a pleasant 61-year-old male coming in with chest pain and left arm numbnes s for 2 days prior to admission, transferred from an outside hospital for findings of 90% LAD stenos is of left heart catheterization, chest pain. He was admitted to telemetry for further evaluation a nd treatment. CT surgeon, Dr. Jackson was consulted. A 2D echocardiogram was completed showin. Normal left ventricular cavity size, normal left ventricular wall thickness, mild left ventricul ar systolic function, ejection fraction is visually estimated at 45%, multiple segmental wall motion abnormalities, frequent PVCs complicated accurate measurement of ejection fraction. Mitral valve l eaflets appear mildly thickened, trace mitral regurgitation. Normal appearance of the aortic valve, no significant aortic stenosis or insufficiency. Normal appearance and function of the tricuspid v alve and trace physiological regurgitation, normal pericardium with no significant pericardial effus ion. Patient was taken for a heart catheterization today that had shown moderate nonobstructive cor onary artery disease involving ostial LAD stenosis. Normal left heart filling pressures. 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 No significant aortic stenosis by gradient. ____ was 40% to 50% in the LAD. 2. Laboratories: His CBC was within normal limits. BMP was within normal limits. Troponin was 0. 02, 0.018, and 0.018. Triglycerides were 202, cholesterol 241, LDL 182, HDL 19. Coags within normal limits. MRSA was negative. 3. The patient otherwise on the day of discharge, his chest pain had resolved, no other acute compl aints. Physical exam findings improved, and spoke to the patient about the care plan and agreed wit h the care plan. DISPOSITION: Home. CONDITION: Stable. DISCHARGE MEDICATIONS: Include: 1. Norvasc 5 mg p.o. daily. 2. Aspirin 81 mg p.o. daily. 3. Atorvastatin 80 mg p.o. at bedtime. 4. Coreg 3.125 mg p.o. b.i.d. 5. Imdur 30 mg p.o. daily. 6. Losartan 25 mg p.o. daily. 7. Nitrostat 1 tab sublingual q. 5 p.r.n. for angina, max dose 3. FOLLOWUP: The patient will follow up with primary care physician in 1 week. Will follow up with Dr Marie Jackson in 2 weeks. The patient and consultants were made aware of this and agree with the plan. COORDINATION OF DISCHARGE: Greater than 45 minutes. Dictated By: LAKESHA LYNN/MARCELINA Conf#: [id number] DID#: [id number]
--- NOTE | 2016-09-07 18:35 | PN ---
Date/Time of Note Date/Time of Note DATE: 09/07/16 TIME: 18:33 Assessment/Plan Lines/Catheters IV Catheter Type (from Nrs): Peripheral IV Allred in Place (from Nrs): No Assessment/Plan Chief Complaint/Hosp Course IMPRESSION: Coronary artery disease. Moderate nonobstructive coronary artery disease involving ostial LAD stenosis. RECOMMENDATIONS: Medical treatment Problems: Subjective 24 Hr Interval Summary Constitutional: improved Pain Control: mild Exam/Review of Systems Vital Signs Vitals Vital Signs Date Time Temp Pulse Resp B/P Pulse Ox O2 Delivery O2 Flow Rate FiO2 09/07/16 17:09 77 09/07/16 15:37 98.8 18 122/71 96 09/07/16 11:49 Room Air 09/03/16 16:04 21 Intake and Output 09/06/16 09/06/16 09/07/16 15:00 23:00 07:00 Intake Total 360 ml 840 ml Balance 360 ml 840 ml Exam Neck: non-tender, supple Respiratory: clear to auscultation, normal air movement Cardiovascular: nl pulses, regular rate and rhythm Gastrointestinal: nl liver, spleen, non-tender, soft Results Result Diagram: 09/07/16 0555 09/07/16 0555 VINH SINGH MD Sep 07, 2016 18:35
== END 2016-09-07 19:50 | disposition home or self-care (01) | DRG 287 ==
LOC: TEL 10:09
PROVIDERS: ADMIT Internal Medicine; ATTEND Internal Medicine
PROC: 4A023N7 Measurement of Cardiac Sampling and Pressure, Left Heart, Percutaneous Approach (ICD-10-PCS; principal; 2016-09-07)
PROC: B211YZZ Fluoroscopy of Multiple Coronary Arteries using Other Contrast (ICD-10-PCS; 2016-09-07)
DX: I25.10 Atherosclerotic heart disease of native coronary artery without angina pectoris (principal); Q24.5 Malformation of coronary vessels; J44.9 Chronic obstructive pulmonary disease, unspecified; I11.9 Hypertensive heart disease without heart failure; F12.90 Cannabis use, unspecified, uncomplicated; Z81.8 Family history of other mental and behavioral disorders; E78.5 Hyperlipidemia, unspecified
CPT/HCPCS: 80048; 80061; 83036; 83735; 84100; 84439; 84443; 84484; 85025; 85610; 85730; 87081; 93306; 93458; C1769; C1887; J1644; J2250; J3010; J7030; J7040; Q9967